=== PATIENT | female | born 2005 | race Caucasian/White ===

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

== ENCOUNTER 2024-07-02 08:46 | Emergency (ER) | payer BC, OTHER ==
[2024-07-02] MEDS ORDERED: Ibuprofen 200 MG TAB ONE (09:32)
== END 2024-07-02 09:45 | disposition home or self-care (01) ==
LOC: CSHERS 08:46
DX: S60.410A Abrasion of right index finger, initial encounter (principal); W23.0XXA Caught, crushed, jammed, or pinched between moving objects, initial encounter; Y93.89 Activity, other specified; Y92.69 Other specified industrial and construction area as the place of occurrence of the external cause
CPT/HCPCS: 99283